=== PATIENT | female | born 1980 | race Caucasian/White ===

== ENCOUNTER → 2017-02-14 | Outpatient (CLI) | payer OTHER | END | disposition home or self-care (01) | LOC: CFH 14:21 | PROVIDERS: ATTEND Nurse Practitioner Family | DX: J32.0 Chronic maxillary sinusitis (principal); R51 Headache; J34.2 Deviated nasal septum; J34.9 Unspecified disorder of nose and nasal sinuses | CPT/HCPCS: 70486 ==

== ENCOUNTER 2020-07-25 06:31 | Emergency (ER) | payer OTHER ==
[~2020-07-25] VITALS: Ht 162.6 cm; Wt 60.0 kg
[2020-07-25 06:36] VITALS: BP 127/73
--- NOTE | 2020-07-25 06:54 | NUR ---
BEDSIDE REPORT TO STEPHENIE LEVI
[2020-07-25] MEDS ORDERED: PLEASE ENTER ALLERGIES MC SCH (07:00)
[2020-07-25] MEDS ORDERED: DIPH,PERTUSS(ACELL),TET VAC/PF 0.5 ML IM-VACC ONE ×2 (07:00→07:18)
== END 2020-07-25 07:50 | disposition home or self-care (01) ==
LOC: ED 07:20
DX: S61.230A Puncture wound without foreign body of right index finger without damage to nail, initial encounter (principal); X58.XXXA Exposure to other specified factors, initial encounter; Y93.89 Activity, other specified; Y92.89 Other specified places as the place of occurrence of the external cause; Y99.8 Other external cause status
CPT/HCPCS: 36415; 86705; 86706; 86803; 87340; 87806; 90471; 90715; 99283; G0475